=== PATIENT | male | born 1940 | race Caucasian/White ===

== ENCOUNTER 2023-06-19 22:47 | Outpatient (CLI) | payer MEDICARE, SELFPAY | END 2023-06-19 22:48 | disposition home or self-care (01) | LOC: AMB 06-28 10:26 | PROVIDERS: Visit Provider Family Medicine | DX: U07.1 COVID-19 (principal); R50.9 Fever, unspecified | CPT/HCPCS: A0998 ==

== ENCOUNTER 2023-06-21 08:08 | Outpatient (CLI) | payer MEDICARE, SELFPAY | END 2023-06-21 08:09 | disposition home or self-care (01) | LOC: AMB 06-25 09:46 | PROVIDERS: Visit Provider Emergency Medicine | DX: R55 Syncope and collapse (principal) | CPT/HCPCS: A0425; A0427 ==

== ENCOUNTER 2023-06-21 08:58 | Emergency (ER) | payer MEDICARE, SELFPAY ==
[2023-06-21] VITALS (23 sets, daily range): BP systolic 136–201; BP diastolic 66–122; PULSE 69–82; RESP 12–16; TEMP 36.7; O2SAT 92–98; BMI 26.6
--- NOTE | 2023-06-21 09:15 | CRLHL7_ITS ---
For Patients: As a result of the Century Cures Act, medical imaging exams and procedure reports are released immediately into your electronic medical record. You may view this report before your referring provider. If you have questions, please contact your health care provider. Indication: Fall with head injury and amnesia, posterior lump Technique: Volumetric multidetector CT images of the head were obtained without the administration of low osmolar intravenous contrast. Comparison: None available Findings: There is no intra-axial or extra-axial fluid collection. There is no mass effect or midline shift. There is age-related cortical atrophy with mild sulcal widening and ex vacuo dilatation of the lateral ventricles. There are chronic small vessel disease changes in the subcortical and periventricular white matter without lost rome-white differentiation. The orbits and their contents are grossly within normal limits. The bony calvarium is grossly intact. The paranasal sinuses are clear. The mastoid air cells are well aerated. Impression: 1. Age-related changes of the brain without acute intracranial abnormality. Please note that all CT scans at this facility use dose modulation, iterative reconstruction, and/or weight-based dosing when appropriate to reduce radiation dose to as low as reasonably achievable. Dictated by Eduardo Blanco MD @ 06/21/2023 10:05:37 AM (Electronically Signed)
--- NOTE | 2023-06-21 09:16 | ED.GENADULT ---
HPI - General Adult General Chief complaint: Fall/Minor Trauma Stated complaint: covid / fall Time Seen by Provider: 06/21/23 09:11 History of Present Illness HPI narrative: Pt BIBA from home after unwitnessed fall with LOC. Pt does not recall events of fall. COVID+ (test on sat, symptoms started ). EMS endorses minor lac to posterior head. No med hx. New onset diarrhea today. C/o dizziness, weakness, chronic head pressure. 82-year-old man presenting to the emergency department internal TTA called upon arrival after a fall this morning. Is amnestic to the event. He had been up to go to the bathroom this morning was on his way to the kitchen ?to do something? and next thing remembers woke up on the floor. Denies chest pain or shortness of breath. No back pain. Does not have a cardiac history. Has been struggling with a headache over the last year with at least 2 CT scans done. Headache tends to be on the top of his head. Is not complaining of significant headache now. This last week was diagnosed with COVID. First symptoms were 2-3 days ago. Is not particularly short of breath. Had loose stools today as well. No abdominal pain. EMS apparently reported a systolic blood pressure drop from lying to sitting of 30 points from 160 to 130 Past medical includes hypertension, dyslipidemia, BPH Medications are reviewed. Allergies noted to aspirin. Related Data Home Medications Medication Instructions Recorded Confirmed atorvastatin 20 mg tablet 20 mg PO QPM 06/21/23 06/21/23 hydrochlorothiazide 12.5 mg tablet 25 mg PO QAM 06/21/23 06/21/23 lisinopril 30 mg tablet 30 mg PO QAM 06/21/23 06/21/23 tamsulosin 0.4 mg capsule 0.4 mg PO DAILY 06/21/23 06/21/23 Previous Rx's Medication Instructions Recorded nirmatrelvir 300 mg (150 mg See Rx Instructions PO .COMPLEX 06/21/23 x2)-ritonavir 100 mg tablet,dose #30 ea pack (Paxlovid) Allergies Allergy/AdvReac Type Severity Reaction Status Date / Time aspirin AdvReac Unknown Verified 06/21/23 09:12 Review of Systems Status of ROS: Reports: 6 or more systems reviewed and unremarkable except as noted in History and below PFSH PFSH Social History Smoking Status: Smoker, status unknown How often do you have a drink containing alcohol: never AUDIT-C Alcohol total score: 0 Non-prescribed substance use: denies use Exam Narrative: Exam Narrative: Vitals are noted on arrival with blood pressure 155/88 Is breathing easily maintaining airway. C-collar in place Upon initial evaluation there is no evidence of bleeding other than small lump the occipital prominence centrally which is subtly pain but not actively bleeding. GCS of 15. Pupils are 3 mm appropriately reactive. Is moving all extremities without difficulty, with good strength. Exam again of head without evidence of any other injury. Neck is nontender including midline palpation. Trachea is midline Gravelly voice sounds congested in the nasopharynx. No facial swelling or erythema or particular tenderness. Oropharynx without acute injury. External ear canals free of fluid. Lungs otherwise are clear. No pain to palpation over the chest wall. Abdomen is flat soft and nontender. Hips are without discomfort to palpation or any evidence of instability. Examination of the back is without tenderness or deformity. Extremities again without evidence of injury. No edema. Const: Vital Signs, click to edit/add: Vital Signs - 24 hr 06/21/23 09:00 06/21/23 09:11 06/21/23 09:13 Temperature 98.1 F Pulse Rate 71 73 Pulse Rate [Pulse Oximeter] 75 Respiratory Rate 14 14 Blood Pressure 159/81 H Blood Pressure [Ri ght Upper Arm] 154/88 H Pulse Oximetry 98 96 92 Oxygen Delivery Me thod Room Air 06/21/23 09:22 06/21/23 09:32 06/21/23 09:46 Temperature Pulse Rate 75 70 76 Pulse Rate [Pulse Oximeter] Respiratory Rate 12 14 Blood Pressure 145/84 H 143/80 H Blood Pressure [Ri ght Upper Arm] Pulse Oximetry 95 95 95 Oxygen Delivery Me thod 06/21/23 09:54 06/21/23 10:05 06/21/23 10:14 Temperature Pulse Rate 76 79 72 Pulse Rate [Pulse Oximeter] Respiratory Rate 14 12 14 Blood Pressure 143/122 H 138/107 H 161/89 H Blood Pressure [Ri ght Upper Arm] Pulse Oximetry 94 92 97 Oxygen Delivery Me thod 06/21/23 10:23 06/21/23 10:33 06/21/23 10:43 Temperature Pulse Rate 69 72 80 Pulse Rate [Pulse Oximeter] Respiratory Rate 12 14 14 Blood Pressure 164/89 H 136/66 148/86 H Blood Pressure [Ri ght Upper Arm] Pulse Oximetry 96 95 95 Oxygen Delivery Me thod 06/21/23 10:53 06/21/23 11:03 06/21/23 11:13 Temperature Pulse Rate 76 78 77 Pulse Rate [Pulse Oximeter] Respiratory Rate 16 14 14 Blood Pressure 148/89 H 152/82 H 155/76 H Blood Pressure [Ri ght Upper Arm] Pulse Oximetry 98 96 95 Oxygen Delivery Me thod 06/21/23 11:23 06/21/23 11:32 06/21/23 11:42 Temperature Pulse Rate 69 76 75 Pulse Rate [Pulse Oximeter] Respiratory Rate 14 14 14 Blood Pressure 154/72 H 144/82 H 201/116 H Blood Pressure [Ri ght Upper Arm] Pulse Oximetry 96 95 94 Oxygen Delivery Me thod 06/21/23 11:53 06/21/23 12:02 06/21/23 12:13 Temperature Pulse Rate 82 78 80 Pulse Rate [Pulse Oximeter] Respiratory Rate 12 14 12 Blood Pressure 152/106 H 146/80 H 143/66 H Blood Pressure [Ri ght Upper Arm] Pulse Oximetry 95 96 96 Oxygen Delivery Me thod 06/21/23 12:22 06/21/23 13:03 Temperature 98.1 F Pulse Rate 77 Pulse Rate [Pulse Oximeter] 75 Respiratory Rate 14 14 Blood Pressure 140/91 H Blood Pressure [Ri ght Upper Arm] 154/88 H Pulse Oximetry 97 Oxygen Delivery Me thod Documenting provider has reviewed patient's vital signs: yes Course Vital Signs Vital signs: Initial Vital Signs Temperature 98.1 F 06/21/23 09:00 Temperature Source Temporal Artery Scan 06/21/23 09:00 Pulse Rate 75 06/21/23 09:00 Pulse Rhythm Regular 06/21/23 09:00 Respiratory Rate 14 06/21/23 09:00 Blood Pressure 154/88 H 06/21/23 09:00 Blood Pressure Mean 110 H 06/21/23 09:00 Blood Pressure Position Supine 06/21/23 09:00 Pulse Oximetry 98 06/21/23 09:00 Oxygen Delivery Method Room Air 06/21/23 09:00 Vital Signs Temperature 98.1 F 06/21/23 09:00 Pulse Rate 75 06/21/23 09:00 Respiratory Rate 14 12/29/23 09:00 Blood Pressure 154/88 H 06/21/23 09:00 Pulse Oximetry 98 06/21/23 09:00 Oxygen Delivery Method Room Air 06/21/23 09:00 Temperature 98.1 F 06/21/23 13:03 Pulse Rate 75 06/21/23 13:03 Respiratory Rate 14 06/21/23 13:03 Blood Pressure 154/88 H 06/21/23 13:03 Pulse Oximetry 97 06/21/23 12:22 Oxygen Delivery Method Room Air 06/21/23 09:00 Medications Administered Medications: Discontinued Medications Generic Name Dose Route Start Last Admin Trade Name Freq PRN Reason Stop Dose Admin Sodium Chloride 1,000 mls @ 1,000 mls/hr 06/21/23 09:24 06/21/23 11:40 0.9 % Sodium Chloride 1000 Ml IV 06/21/23 10:23 Infused .Q1H RODRIGO Infusion Medical Decision Making MDM Narrative Medical decision making narrative: Does appear to have had a syncopal event related to orthostatic hypotension. COVID in addition to looser stools may have contributed. Does not take beta-sammy but does take tamsulosin. Blood pressure drop as measured by EMS may have been partially post syncopal response as well. Is amnestic to these events in particular warrants head CT. He is clear in his report that neck is without discomfort. No other injury other than head noted IV fluid with normal saline initially. Head CT reviewed by me looks to show chronic changes. No evidence of acute bony abnormality or evidence of bleed. See radiology over-read as below Indication: Fall with head injury and amnesia, posterior lump Technique: Volumetric multidetector CT images of the head were obtained without the administration of low osmolar intravenous contrast. Comparison: None available Findings: There is no intra-axial or extra-axial fluid collection. There is no mass effect or midline shift. There is age-related cortical atrophy with mild sulcal widening and ex vacuo dilatation of the lateral ventricles. There are chronic small vessel disease changes in the subcortical and periventricular white matter without lost rome-white differentiation. The orbits and their contents are grossly within normal limits. The bony calvarium is grossly intact. The paranasal sinuses are clear. The mastoid air cells are well aerated. Impression: 1. Age-related changes of the brain without acute intracranial abnormality. Overall well during time in the emergency department. Labs notable for mild hyponatremia. Possibly related to recent COVID diagnosis and/or loose stools. Also does take hydrochlorothiazide. Following fluid resuscitation here I would estimate around 133 for sodium. Vitals stable. Looks to have more energy. Has not demonstrated dysrhythmia on monitoring other than some asymptomatic PACs noted an EKG. Is still within temporal window that might benefit from Paxlovid, but not by much. They are still considering. Ultimately ambulatory from the ER. See patient discharge plan Lab Data Lab results reviewed: Yes I reviewed the patient's lab results Labs: Lab Results 06/21/23 Range/Units 11:29 WBC 4.15 L (4.50-11.00) K/uL RBC 4.42 (4.30-5.90) m/uL Hgb 14.3 (13.5-17.5) gm/dL Hct 40.7 (37.0-53.0) % MCV 92 (80-100) fL MCH 32 (26-34) pg MCHC 35 (32-36) gm/dL RDW Coeff of Torres 11.5 (11.5-15.5) % Plt Count 131 L (140-440) K/uL Neut % (Auto) 65.8 (42.0-72.0) % Lymph % (Auto) 15.9 L (20-44) % [place] % (Auto) 17.6 H (0.0-11.0) % Eos % (Auto) 0.0 (0.0-7.0) % Baso % (Auto) 0.5 (0.0-3.0) % Neut # (Auto) 2.70 (1.7-7.0) K/uL Lymph # (Auto) 0.70 L (0.90-2.90) K/uL [place] # (Auto) 0.70 (0.00-0.90) K/UL Eos # (Auto) 0.00 (0.00-0.50) K/uL Baso # (Auto) 0.00 (0.00-0.30) K/uL Abs Immat Gran (auto) 0.00 (0.00-0.30) K/uL Imm/Tot Granulo (auto) 0.2 % Sodium 130 L (135-149) mmol/L Potassium 3.8 (3.6-5.1) mmol/L Chloride 96 (96-114) mmol/L Carbon Dioxide 25 (20-32) mmol/L Anion Gap 9 (7-15) mEq/L BUN 11 (7-30) mg/dL Creatinine 0.6 (0.5-1.5) mg/dL Estimated Creat Clear 56.95 Estimated GFR 96 ml/min Glucose 94 (60-115) mg/dL Calcium 7.6 L (8.4-10.6) mg/dL Troponin I < 0.01 L (0.01-0.04) ng/mL ECG Data Attestation: I personally reviewed and interpreted this ECG as follows: (Sinus rhythm at 73. PACs are evident) Critical Care Time Critical Care Time Critical Care Time: Yes Attestation: The patient required my highest level preparedness to intervene emergently and I personally spent this critical care time directly and personally managing the patient. This critical care time included: Obtaining a history; Examining the patient; Pulse oximetry; Ordering and reviewing of studies; Arranging urgent treatment with development of a management plan; Evaluation of patients response to treatment; Frequent reassessment discussions with other providers. This critical care time was performed to assess and manage the high probability of imminent life-threatening deterioration that could result in multiorgan failure. It was exclusive of separate billable procedures and treating other patients and teaching time. Total Critical Care Time in Minutes: 45 Discharge Plan Discharge Clinical Impression: Orthostatic syncope, COVID-19, Acute hyponatremia, Dehydration, Closed head injury Patient Disposition: Home w/ Parent or Adult Condition: Stable Additional Instructions: Focus on hydration. Might help to sleep under the mist of a cool mist humidifier. Should you decide to take Paxlovid I would start it yet today. If you do begin this medication, would also hold your atorvastatin for 8 days. Be seen for persistent increased shortness of breath, worsening lightheadedness or associated chest pain. Quarantine for 10 days from 1st day of symptoms. Prescriptions: New Paxlovid 300 mg (150 mg x 2)-100 mg tablets,dose pack See Rx Instructions .ROUTE .COMPLEX Qty: 30 0RF Rx Instructions: take TWO 150 mg tablets of nirmatrelvir with ONE 100 mg tablet of ritonavir twice daily for 5 days No Action atorvastatin 20 mg tablet 20 mg PO QPM tamsulosin 0.4 mg capsule 0.4 mg PO DAILY lisinopril 30 mg tablet 30 mg PO QAM hydrochlorothiazide 12.5 mg tablet 25 mg PO QAM Follow Up/Referrals: Provider,Not a Local [Primary Care Provider] - Stand Alone Forms: [employer] Info Instructions
[2023-06-21] MEDS: 0.9 % SODIUM CHLORIDE 1000 ml 1,000 ML IV (10:35)
[2023-06-21 11:40] LABS: Basophils Percent Auto 0.5 % (0.0-3.0); Hematocrit 40.7 % (37.0-53.0); Hemoglobin* 14.3 gm/dL (13.5-17.5); Immature Granulocytes Pct Auto 0.2 %; Lymphocytes Percent Auto 15.9 % (20-44); Mean Corpuscular HGB Conc 35 gm/dL (32-36); Mean Corpuscular Hemoglobin 32 pg (26-34); Mean Corpuscular Volume 92 fL (80-100); Monocytes Percent Auto 17.6 % (0.0-11.0); Neutrophils Percent Auto 65.8 % (42.0-72.0); Platelet Count* 131 K/uL (140-440); RDW Coefficient of Variation % 11.5 % (11.5-15.5); Red Blood Count 4.42 m/uL (4.30-5.90); White Blood Count* 4.15 K/uL (4.50-11.00)
[2023-06-21 11:44] LABS: Slide Review Reflex No
[2023-06-21 11:51] LABS: Chloride* 96 mmol/L (96-114); Potassium* 3.8 mmol/L (3.6-5.1); Sodium* 130 mmol/L (135-149)
[2023-06-21 11:54] LABS: Anion Gap 9 mEq/L (7-15); Blood Urea Nitrogen* 11 mg/dL (7-30); Carbon Dioxide* 25 mmol/L (20-32); Creatinine* 0.6 mg/dL (0.5-1.5); Est. Creatinine Clearance* 56.95; Estimated Glomerular Filt Rate 96 ml/min
[2023-06-21 11:55] LABS: Calcium* 7.6 mg/dL (8.4-10.6); Glucose* 94 mg/dL (60-115)
[2023-06-21 12:09] LABS: Troponin I* < 0.01 ng/mL (0.01-0.04)
== END 2023-06-21 12:40 | disposition home or self-care (01) ==
PROVIDERS: Emergency Provider Family Medicine
DX: R55 Syncope and collapse (principal); U07.1 COVID-19; E87.1 Hypo-osmolality and hyponatremia; S09.90XA Unspecified injury of head, initial encounter; W19.XXXA Unspecified fall, initial encounter
CPT/HCPCS: 36415; 70450; 80048; 84484; 85025; 93005; 99284; 99291; G0390; J7030